=== PATIENT | female | born 1985 | race Caucasian/White ===

== ENCOUNTER 2024-04-20 19:12 | Emergency (ER) | payer OTHER ==
[~2024-04-20] VITALS: Ht 154.9 cm; Wt 56.0 kg
[2024-04-20 19:15] VITALS: O2SAT 100
[2024-04-20 19:20] VITALS: BP 104/66; PULSE 88; RESP 18; TEMP 98.7; O2SAT 99
== END 2024-04-20 23:18 | disposition home or self-care (01) ==
LOC: ER 19:12
DX: A15.9 Respiratory tuberculosis unspecified (principal); F19.90 Other psychoactive substance use, unspecified, uncomplicated
CPT/HCPCS: 71045; 99283